=== PATIENT | female | born 1945 | race Caucasian/White ===

== ENCOUNTER 2021-08-23 15:11 | Outpatient (CLI) | payer MEDICARE, SELFPAY ==
--- NOTE | 2021-08-23 15:25 | XR_ITS ---
WS: [id number] DEXA (DUAL ENERGY X-RAY ABSORPTIOMETRY) Bone mineral density was performed using a [employer] machine. HISTORY: POST MENOPAUSAL COMPARISON: None available. Lumbar spine BMD (L1-L4): 1.071 g/cm2 T score: -0.9 Z score: 0.4 Total hip BMD: Left: 0.869 g/cm2. T score: -1.1 Z score: 0.2 Right: 0.880 g/cm2. T score: -1.0 Z score: 0.3 10 year probability of a major osteoporotic fracture is 21%. XR/XR DEXA axial skeleton* 70308 IMPRESSION: OSTEOPENIA based upon the WHO classification for females.
== END 2021-08-23 15:12 | disposition home or self-care (01) ==
LOC: RAD 15:15
PROVIDERS: PCP Family Medicine; Visit Provider Nurse Practitioner Family
DX: Z78.0 Asymptomatic menopausal state (principal); M85.80 Other specified disorders of bone density and structure, unspecified site
CPT/HCPCS: 77080

== ENCOUNTER 2023-10-14 11:38 | Emergency (ER) | payer MEDICARE, SELFPAY ==
[2023-10-14 11:57] VITALS: PULSE 109; RESP 20; O2SAT 98; BMI 31.1
[2023-10-14] MEDS: tetanus-dipt-pertussis 0.5 mL SDV IM (12:08)
[2023-10-14 12:21] VITALS: RESP 18; O2SAT 95
[2023-10-14] MEDS: morphine 4 mg/mL SDV 1 mL IVP (12:21)
[2023-10-14] MEDS: ondansetron 2 mg/ML SDV 2 mL 4 MG IVP (12:21)
[2023-10-14] MEDS: ceFAZolin 1,000 MG in sodium chloride 0.9% (plus) 50 ML 100 MG IV (12:23)
[2023-10-14] MEDS: lidocaine 1% INJ 10 mL (per mL) XX (12:30)
--- NOTE | 2023-10-14 12:31 | XRR_ITS ---
PROCEDURE INFORMATION: Exam: XR Right Finger(s) Exam date and time: 10/14/2023 12:35 PM Age: 78 years old Clinical indication: Injury or trauma; Finger; Right; Patient HX: RT hand pain; Puncture wound to distal RT thumb extending to base of RT 1st mcp; Additional info: RT hand pain; Puncture wound to distal RT thumb extending to base of RT 1st mcp; Impaled fb palmar aspect R thumb TECHNIQUE: Imaging protocol: Radiologic exam of the right fingers. Views: Minimum 2 views. COMPARISON: No relevant prior studies available. FINDINGS: Bones/joints: Multi-articular primary osteoarthritic changes including joint space narrowing, subchondral cystic/sclerotic changes, and marginal osteophyte formations. Soft tissues: No radiopaque foreign body. XR/XR finger RT min 2V 64176 IMPRESSION: No radiopaque foreign body.
--- NOTE | 2023-10-14 12:32 | ED_ITS ---
HPI - Extremity Problem General: Chief complaint: Extremity Injury, Upper Stated complaint: Right thumb lac Time Seen by Provider: 10/14/23 12:01 Source: patient Mode of arrival: ambulatory History of Present Illness: 78-year-old female who presents to the e mergency room she was trying to rake a very large mouse trap and impaled her right thumb across the pad from the DIP joint to the tip of the thumb with the end of the spring steel as she was setting the trap. On arrival here her finger still has the spring impaled and it. She is unsure of her last tetanus shot. She does not have any active bleeding she is not on any anticoagulants. This happened about an hour and a half before her arrival. It took her some time to find someone to take her in and they live some distance from the hospital MD Complaint: other (Impaled foreign body) Onset (ago): hour(s) Pain Consistency: constant Location: right (Thumb) Quality: sharp Relieving factors: nothing Exacerbating factors: nothing Physical Exam Narrative: EXAM NARRATIVE: 78-year-old female awake alert and orien marleny has not impaled portion of spring steel still attached to a very large mouse trap. No active bleeding. Sensation normal. This still is impaled proximal to the DIP joint and extending across the DIP joint exiting at the tip of the thumb. When the patient arrived the trap was actually in the set position with tension on the trap bar. A vice shuttle buggy operator was used to secure the trap bar from springing back across the trap. Digital nerve block was carried out, and patient was given 4 mg of IV morphine and 4 mg of IV Zofran. We initially took the tension off of the trap bar on the opposite side and then using a needle-nose pliers r emoved this spring tension from the bar on the side where the patient's thumb was impaled. The initial plan was to cut the steel with a wire cutters however the wire rope sales representative was not strong enough to cut through the still when tested on the opposite side. We are also not able to get the wire cutters into position to try to cut it. Alternatively needle-nose pliers was used to position the spring still above the level of the trap so that we could manipulate the thumb in the spring still to remove it. With moderate force were able to remove without any further injury to the tissue. After it was removed the patient is able to flex against resistance. She has no sensation because of the nerve block. Course Vital Signs: Vital signs: Vital Signs Pulse Rate 82 10/14/23 13:41 Respiratory Rate 18 10/14/23 12:21 Pulse Oximetry 94 10/14/23 13:41 Oxygen Delivery Me thod Room Air 10/14/23 11:57 MDM - Extremity (Nontraumatic) Medical Decision Making Foreign body removal as above. Patient given Tdap as well as 1 g of IV Ancef. Patient tolerated removal of the foreign body well digital nerve block provided excellent regional anesthesia. Will discharge home with oral antibiotics. Wound left open to drain. Pain medications given. Functionally the tendons appear to be intact. Will have her follow-up with her primary care doctor within the next 2 to 3 days. Medical Records I reviewed the patient's medical records. Lab Data I reviewed the patient's lab results. XR interpretation done by ED provider, pending radiology final review Discharge Plan Discharge Patient Disposition: Home Clinical Impression: Foreign body of finger of right hand Condition: Stable Prescriptions: New hydrocodone-acetaminophen 5-325 mg tablet 1 tab PO Q6H PRN (Reason: pain) Qty: 15 0RF clindamycin HCl 300 mg capsule 300 mg PO QID 7 Days Qty: 28 0RF Discharge Orders: Discharge ED (Routine); Ordered 10/14/23 Ordered By: Jarod Trujillo Referrals: Aby Maldonado MD [Primary Care Provider] - Discharge Diet: Usual diet Discharge Activity: Increase activity as tolerated Patient Instructions: Opioid Safety, Pain Management Activity Restrictions/Additional Instructions: Thank you for choosing [facility] for your healthcare needs today. It is very important that you follow up as instructed or that you return to the Emergency Department should you have concerns or if your condition changes or worsens in any way. You were seen today with a retained foreign body in the right thumb. This was removed with regional anesthesia. The wound was left open to drain and should heal by secondary intent. Apply topical antibiotic ointment to the entrance and exit wounds at least once a day. Elevate your hand above the level of your elbow to minimize swelling and throbbing. You can also use ice to the affected area as needed for comfort. You were given initial dose of antibiotics in the emergency room and discharged home with a prescription for 1 week. You are also given pain medications for use at home for discomfort. You should follow-up with your primary care doctor early next week to reevaluate. X-ray did not show any bone involvement and function was normal at the time of discharge. If there is any redness fever or drainage return to the emergency room. Coding Level of Care Code ED Clinic Receptionist for Matt Mcgee
[2023-10-14 12:35] VITALS: O2SAT 95
[2023-10-14 13:41] VITALS: PULSE 82; O2SAT 94
== END 2023-10-14 13:43 | disposition home or self-care (01) ==
PROVIDERS: Emergency Provider Family Medicine; PCP Family Medicine
DX: S61.041A Puncture wound with foreign body of right thumb without damage to nail, initial encounter (principal); W26.8XXA Contact with other sharp object(s), not elsewhere classified, initial encounter; Z23 Encounter for immunization
CPT/HCPCS: 64450; 73140; 90471; 90715; 96374; 96375; 99284; J0690; J2270; J2405

== ENCOUNTER 2024-02-27 12:41 | Outpatient (CLI) | payer MEDICARE, SELFPAY ==
--- NOTE | 2024-02-27 12:46 | XR_ITS ---
WS: [id number] DEXA (DUAL ENERGY X-RAY ABSORPTIOMETRY) Bone mineral density was performed using a [employer] machine. HISTORY: POST MENOPAUSAL COMPARISON: 08/23/2021 Lumbar spine BMD (L1-L4): 1.192 g/cm2 T score: 0.1 Z score: 1.5 Total hip BMD: Left: 0.929 g/cm2. T score: -0.6 Z score: 0.9 Right: 0.953 g/cm2. T score: -0.4 Z score: 1.1 10 year probability of a major osteoporotic fracture is 14.8%. Compared to the prior study from 08/23/2021. Lumbar spine bone mineral density has increased by 11.3%. Bilateral hips bone mineral density has increased by 7.7%. XR/XR DEXA axial skeleton* [id number] IMPRESSION: NORMAL BONE MINERAL DENSITY based upon the WHO classification for females. Significant increase in bone mineral density within both the hips and the lumba r spine since the prior exam.
== END 2024-02-27 12:42 | disposition home or self-care (01) ==
LOC: RAD 12:42
PROVIDERS: PCP Family Medicine; Visit Provider Physician Assistant
DX: Z13.820 Encounter for screening for osteoporosis (principal); Z78.0 Asymptomatic menopausal state
CPT/HCPCS: 77080